=== PATIENT | male | born 1990 | race Caucasian/White ===

== ENCOUNTER 2016-12-25 13:30 | Emergency (ER) | payer MEDICAID ==
[~2016-12-25] VITALS: Ht 188 cm; Wt 97.5 kg
[2016-12-25 13:30] VITALS: BP 132/73
[2016-12-25] MEDS ORDERED: NORCOTAB PO (13:52)
[2016-12-25] MEDS ORDERED: ROBA500T PO (13:52)
[2016-12-25] MEDS ORDERED: PRED20TA PO (13:55)
[2016-12-25] MEDS ORDERED: diphenhydrAMINE 25 MG CAP PO ONE (14:00)
[2016-12-25] MEDS ORDERED: predniSONE 20 MG TAB PO ONE (14:00)
== END 2016-12-25 14:05 | disposition home or self-care (01) ==
LOC: M ED 13:53
DX: L23.7 Allergic contact dermatitis due to plants, except food (principal); F17.210 Nicotine dependence, cigarettes, uncomplicated

== ENCOUNTER → 2017-01-19 | Outpatient (CLI) | payer MEDICAID ==
[~2017-01-19] MED LIST: NORCOTAB PO; PRED20TA PO; ROBA500T PO
== END ==
LOC: M OUTALCOH 10:12
PROVIDERS: ATTEND Psychiatry & Neurology Psychiatry
DX: Z03.89 Encounter for observation for other suspected diseases and conditions ruled out (principal)

== ENCOUNTER 2017-02-09 20:33 | Emergency (ER) | payer MEDICAID, OTHER ==
[~2017-02-09] VITALS: Ht 188 cm; Wt 109.6 kg
[2017-02-09 20:34] VITALS: BP 146/78
[2017-02-09] MEDS ORDERED: NAPR500T PO (21:15)
== END 2017-02-09 21:24 | disposition home or self-care (01) ==
LOC: M ED 20:33
DX: M67.431 Ganglion, right wrist (principal); F17.200 Nicotine dependence, unspecified, uncomplicated

== ENCOUNTER → 2018-12-12 | Outpatient (CLI) | payer MEDICAID ==
[~2018-12-12] MED LIST changes: +HYDR-3715 PO; +NAPR-837 PO; -NORCOTAB PO
== END ==
LOC: M OUTALCOH 10:29
PROVIDERS: ATTEND Psychiatry & Neurology Psychiatry
DX: Z03.89 Encounter for observation for other suspected diseases and conditions ruled out (principal)

== ENCOUNTER 2018-12-21 08:56 | Outpatient (RCR) | payer MEDICAID ==
[2018-12-26] MEDS ORDERED: IBUP200C28 PO (11:17)
== END 2018-12-28 ==
LOC: M OUTALCOH 08:56
PROVIDERS: ATTEND Psychiatry & Neurology Psychiatry
DX: F11.20 Opioid dependence, uncomplicated (principal)

== ENCOUNTER 2018-12-26 10:31 | Emergency (ER) | payer MEDICAID ==
[~2018-12-26] VITALS: Ht 188 cm; Wt 125.0 kg
[2018-12-26] MEDS ORDERED: IBUP200C28 PO (11:17)
--- NOTE | 2018-12-26 12:07 | REP ---
Left ankle series: Four views. History: Injury in a fall. Findings: Four views of the left ankle demonstrate preserved ankle mortise. No fracture or subluxation is seen. Minimal anterior soft tissue swelling is seen. Impression: Mild soft tissue swelling. No fracture seen. Electronically Signed by Sharad Starkey MD 12/26/2018 11:59 A
--- NOTE | 2018-12-26 12:09 | REP ---
Left foot series: Four views. History: Injury in a fall. Findings: Four views of the left foot show overall normal mineralization. There is old fragmentation of the lateral sesamoid bone at the first MTP joint. There is no evidence of acute fracture or subluxation. Bones, joints and soft tissues are otherwise unremarkable. 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 Impression: No acute bony abnormality. No fracture seen. Electronically Signed by Sharad Starkey MD 12/26/2018 12:01 P
[2018-12-26] MEDS ORDERED: IBUPROFEN 600 MG TAB PO ONE (12:15)
[2018-12-26 12:28] VITALS: BP 134/74
== END 2018-12-26 12:33 | disposition home or self-care (01) ==
LOC: M ED 10:31
DX: S93.602A Unspecified sprain of left foot, initial encounter (principal); X58.XXXA Exposure to other specified factors, initial encounter; Y92.830 Public park as the place of occurrence of the external cause; Y93.89 Activity, other specified; Y99.9 Unspecified external cause status; Z91.030 Bee allergy status

== ENCOUNTER 2019-01-25 14:00 | Outpatient (RCR) | payer MEDICAID ==
[~2019-01-25 14:00] MED LIST changes: +IBUP200C28 PO
== END 2019-01-27 ==
LOC: M OUTALCOH 14:00
PROVIDERS: ATTEND Psychiatry & Neurology Psychiatry
DX: F11.20 Opioid dependence, uncomplicated (principal)

== ENCOUNTER 2019-02-22 13:00 | Outpatient (RCR) | payer MEDICAID | END 2019-02-27 | LOC: M OUTALCOH 13:00 | PROVIDERS: ATTEND Psychiatry & Neurology Psychiatry | DX: F11.20 Opioid dependence, uncomplicated (principal) ==

== ENCOUNTER 2019-03-20 12:46 | Outpatient (RCR) | payer MEDICAID | END 2019-03-30 | LOC: M OUTALCOH 12:46 | PROVIDERS: ATTEND Psychiatry & Neurology Psychiatry | DX: F11.20 Opioid dependence, uncomplicated (principal) ==

== ENCOUNTER → 2019-04-02 | Outpatient (CLI) | payer MEDICAID | LOC: M LAB 11:22 | PROVIDERS: ATTEND Psychiatry & Neurology Addiction Medicine | DX: F10.99 Alcohol use, unspecified with unspecified alcohol-induced disorder (principal) ==

== ENCOUNTER 2019-04-17 13:00 | Outpatient (RCR) | payer MEDICAID, OTHER | END 2019-04-29 | LOC: M OUTALCOH 13:00 | PROVIDERS: ATTEND Psychiatry & Neurology Psychiatry | DX: F11.20 Opioid dependence, uncomplicated (principal) ==

== ENCOUNTER 2019-06-21 12:46 | Outpatient (RCR) | payer OTHER | END 2019-06-29 | LOC: M OUTALCOH 12:46 | PROVIDERS: ATTEND Psychiatry & Neurology Psychiatry | DX: F11.20 Opioid dependence, uncomplicated (principal) ==

== ENCOUNTER → 2019-10-18 | Outpatient (CLI) | payer OTHER | LOC: M OUTALCOH 10:45 | PROVIDERS: ATTEND Psychiatry & Neurology Addiction Medicine | DX: Z02.2 Encounter for examination for admission to residential institution (principal) ==

== ENCOUNTER 2019-11-19 09:00 | Outpatient (RCR) | payer OTHER | END 2019-11-28 | LOC: M OUTALCOH 09:00 | PROVIDERS: ATTEND Psychiatry & Neurology Addiction Medicine | DX: F12.20 Cannabis dependence, uncomplicated (principal); F11.20 Opioid dependence, uncomplicated ==

== ENCOUNTER 2019-12-13 13:16 | Outpatient (RCR) | payer OTHER | END 2019-12-29 | LOC: M OUTALCOH 13:16 | PROVIDERS: ATTEND Psychiatry & Neurology Addiction Medicine | DX: F12.20 Cannabis dependence, uncomplicated (principal); F11.20 Opioid dependence, uncomplicated ==

== ENCOUNTER 2020-02-03 14:51 | Outpatient (RCR) | payer OTHER | END 2020-02-28 | LOC: M OUTALCOH 14:51 | PROVIDERS: ATTEND Psychiatry & Neurology Addiction Medicine | DX: F12.20 Cannabis dependence, uncomplicated (principal); F11.20 Opioid dependence, uncomplicated ==

== ENCOUNTER 2020-03-09 13:00 | Outpatient (RCR) | payer OTHER | END 2020-03-30 | LOC: M OUTALCOH 13:00 | PROVIDERS: ATTEND Psychiatry & Neurology Addiction Medicine | DX: F12.20 Cannabis dependence, uncomplicated (principal); F11.20 Opioid dependence, uncomplicated ==

== ENCOUNTER 2020-03-13 14:42 | Emergency (ER) | payer OTHER ==
[2020-03-13] MEDS ORDERED: KETOROLAC TROMETHAMINE 10 MG TAB ONE (16:09)
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
== END 2020-03-13 18:15 | disposition home or self-care (01) ==
LOC: M ED 14:42
DX: S20.212A Contusion of left front wall of thorax, initial encounter (principal); W19.XXXA Unspecified fall, initial encounter; Y92.9 Unspecified place or not applicable; Y93.51 Activity, roller skating (inline) and skateboarding; Y99.9 Unspecified external cause status; Z91.030 Bee allergy status

== ENCOUNTER 2020-04-13 13:38 | Outpatient (RCR) | payer OTHER | END 2020-04-29 | LOC: M OUTALCOH 13:38 | PROVIDERS: ATTEND Psychiatry & Neurology Addiction Medicine | DX: F12.20 Cannabis dependence, uncomplicated (principal); F11.20 Opioid dependence, uncomplicated ==

== ENCOUNTER → 2020-04-20 | Outpatient (REF) | payer OTHER ==
[~2020-04-20] MED LIST changes: +CYCL5TAB PO
[2020-04-22 09:38] LABS: CHLAMYDIA DNA AMPLIFICATION POSITIVE (NEGATIVE); GC DNA AMPLIFICATION NEGATIVE (NEGATIVE)
== END ==
LOC: M LAB REF 12:26
PROVIDERS: ATTEND Physician Assistant Medical
DX: Z11.3 Encounter for screening for infections with a predominantly sexual mode of transmission (principal)

== ENCOUNTER 2020-05-12 16:16 | Emergency (ER) | payer OTHER ==
[~2020-05-12] VITALS: Ht 188 cm; Wt 126.9 kg
[~2020-05-12 16:16] MED LIST changes: -CYCL5TAB PO
[2020-05-12] MEDS ORDERED: KETOROLAC 60MG 2ML VIAL IM ONE (17:30)
[2020-05-12] MEDS ORDERED: methocarbamoL 750 MG TAB PO ONE (17:30)
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
[2020-05-12] MEDS ORDERED: CYCL5TAB PO (18:50)
[2020-05-12 18:56] VITALS: BP 135/82
== END 2020-05-12 18:57 | disposition home or self-care (01) ==
LOC: M ED 16:16
DX: S39.012A Strain of muscle, fascia and tendon of lower back, initial encounter (principal); V86.55XA Driver of 3- or 4- wheeled all-terrain vehicle (ATV) injured in nontraffic accident, initial encounter; Y92.410 Unspecified street and highway as the place of occurrence of the external cause; Z91.030 Bee allergy status
CPT/HCPCS: 72131; 96372; 99283; J1885

== ENCOUNTER 2020-05-25 15:32 | Outpatient (RCR) | payer OTHER ==
[~2020-05-25 15:32] MED LIST changes: +CYCL5TAB PO
== END 2020-05-30 ==
LOC: M OUTALCOH 15:32
PROVIDERS: ATTEND Psychiatry & Neurology Addiction Medicine
DX: F12.20 Cannabis dependence, uncomplicated (principal); F11.20 Opioid dependence, uncomplicated

== ENCOUNTER 2020-07-06 16:00 | Outpatient (RCR) | payer OTHER | END 2020-07-30 | LOC: M OUTALCOH 16:00 | PROVIDERS: ATTEND Psychiatry & Neurology Addiction Medicine | DX: F12.20 Cannabis dependence, uncomplicated (principal); F11.20 Opioid dependence, uncomplicated ==

== ENCOUNTER 2020-08-10 15:10 | Outpatient (RCR) | payer OTHER | END 2020-08-30 | LOC: M OUTALCOH 15:10 | PROVIDERS: ATTEND Psychiatry & Neurology Addiction Medicine | DX: F12.20 Cannabis dependence, uncomplicated (principal); F11.20 Opioid dependence, uncomplicated ==

== ENCOUNTER 2020-08-31 14:29 | Outpatient (RCR) | payer OTHER ==
[2020-09-13] MEDS ORDERED: DOXY100C37 PO (16:41)
== END 2020-09-27 ==
LOC: M OUTALCOH 14:29
PROVIDERS: ATTEND Psychiatry & Neurology Psychiatry
DX: F12.20 Cannabis dependence, uncomplicated (principal); F11.21 Opioid dependence, in remission

== ENCOUNTER 2020-09-13 14:55 | Emergency (ER) | payer OTHER ==
[~2020-09-13] VITALS: Ht 188 cm; Wt 121.8 kg
--- OUTSIDE RECORDS SUMMARY | 2020-09-13 15:02 | CCD ---
Author Author [facility] Organization [facility] Address Unknown Phone Unavailable Care Team Providers Care Supervisor Gate Services Name Role Phone Rosie Jorgensen Unavailable ANCELMO, SHEILA Unavailable Unavailable Maring, Deandre PA Unavailable Unavailable Maring, Deandre PA Unavailable Unavailable Maring, Deandre PA Unavailable Unavailable Maring, Deandre PA Unavailable Unavailable Maring, Deandre PA Unavailable Unavailable Maring, Deandre PA Unavailable Unavailable Maring, Deandre PA Unavailable Unavailable Maring, Deandre PA Unavailable Unavailable Maring, Deandre PA Unavailable Unavailable Maring, Deandre PA Unavailable Unavailable Maring, Deandre PA Unavailable Unavailable Maring, Deandre PA Unavailable Unavailable Maring, Deandre PA Unavailable Unavailable Maring, Deandre PA Unavailable Unavailable Re-disclosure Warning The records that you are about to access may contain information from federally-assisted alcohol or drug abuse programs. If such information is present, then the following federally mandated warning applies: This information has been disclosed to you from records protected by federal confidentiality rules (42 CFR part 2). The federal rules prohibit you from making any further disclosure of this information unless further disclosure is expressly permitted by the written consent of the person to whom it pertains or as otherwise permitted by 42 CFR part 2. A general authorization for the release of medical or other information is NOT sufficient for this purpose. The Federal rules restrict any use of the information to criminally investigate or prosecute any alcohol or drug abuse patient.The records that you are about to access may contain highly sensitive health information, the redisclosure of which is protected by Article 27-F of the [facility] Public Health law. If you continue you may have access to information: Regarding HIV / AIDS; Provided by facilities licensed or operated by the [facility] Office of Mental Health; or Provided by the [facility] Office for People With Developmental Disabilities. If such information is present, then the following [facility] mandated warning applies: This information has been disclosed to you from confidential records which are protected by state law. State law prohibits you from making any further disclosure of this information without the specific written consent of the person to whom it pertains, or as otherwise permitted by law. Any unauthorized further disclosure in violation of state law may result in a fine or group home sentence or both. A general authorization for the release of medical or other information is NOT sufficient authorization for further disc losure. Family History Family Member Name Family Member Gender Family Member Status Date o f Status Description Data Source(s) Unknown Male Problem [facility] ([facility]) Unknown Male Problem [facility] ([facility] ) Encounters Encounter Providers Location Date Indications Data Source(s ) O Attender: Deandre WERNER 09/12/19 08:52:59 AM EST - 09/12/2020 09:49:39 AM EST [facility] ([facility] ) Outpatient Attender: [facility] 01/07/2020 07:52:21 PM EDT [facility] Outpatient Attender: SHEILA [facility] 12/28/2019 12:16:21 AM EDT [facility] Attender: Rosie Jorgensen 10/11/2019 12:00:00 AM E DT [facility] ([facility]) Brief Individual Psychotherapy - 30 min Attender: Rosie No [facility] 10/10/2019 01:45:00 AM EDT - 10/10/2019 01:45:00 AM EDT [facility] ([facility]) Extended Individual Psychotherapy - 45 min Attender: Graham Hawthorne [facility] 10/08/2019 09:30:00 AM EDT - 10/08/2019 09:30:00 AM EDT [facility] ([facility]) Attender: Rosie Jorgensen 10/08/2019 12:00:00 AM E DT [facility] ([facility]) Medications Medication Brand Name Start Date Product Form Dose Route Admi nistrative Instructions Pharmacy Instructions Status Indications Reaction Description Data Source(s) Cyclobenzaprine hydrochloride 10 MG Oral Tablet CYCLOBENZAPR INE HCL 06/09/2020 12:00:00 AM EST tablet 21 TAKE 1 TABLET (O RAL) 3 TIMES PER DAY NEEDED FOR 7 DAYS TAKE 1 TABLET (ORAL) 3 TIMES PER DAY NEEDED FOR 7 DAYS SO LD: 06/09/2020 [facility] 20 mg 06/09/2020 12:00:00 AM EST tablet 10 TAKE TWO TABLETS BY MOUTH EVERY DAY FOR 5 DAYS TAKE TWO TABLETS BY MOUTH EVERY DAY FOR 5 DAYS SOLD: 020 [facility] Cyclobenzaprine hydrochloride 5 MG Oral Tablet CYCLOBENZAPRI NE HCL 05/13/2020 12:00:00 AM EDT tablet 10 TAKE ONE TABLET BY MOUTH THREE TIMES A DAY NEEDED FOR MUSCLE SPASMS TAKE ONE TABLET BY MOUTH THREE TIMES A D AY NEEDED FOR MUSCLE SPASMS SOLD: 05/13/2020 [facility] 500 mg 04/23/2020 12:00:00 AM EDT tablet 2 TAKE TWO TABLETS BY MOUTH EVERY DAY FOR 1 DOSE TAKE TWO TABLETS BY MOUTH EVERY DAY FOR 1 DOSE SOLD: 020 [facility] 25 mg 07/16/2019 12:00:00 AM EST capsule,extended releas e 24hr 30 TAKE ONE CAPSULE BY MOUTH EVERY MORNING, MAXIMUM DAILY DOSE = 1 CAPSULE TAKE ONE CAPSULE BY MOUTH EVERY MORNING, MAXIMUM DAILY DOSE = 1 CAPSULE SOLD: 07/18/2019 [facility] 20 mg 07/16/2019 12:00:00 AM EST tablet 30 TAKE ONE TABLET BY MOUTH EVERY DAY TAKE ONE TABLET BY MOUTH EVERY DAY SOLD: 07/18/2019 [facility] Insurance Providers Payer name Policy type / Coverage type Policy ID Covered green party ID Covered green party's relationship to sinha Policy Sinha Plan Information [facility] [id number] [address] [employer] [id number] Self [id number] [employer] [id number] Self [id number] [place] [id number] S [id number] Managed Care - MVP P UNAVAILABLE S UNAVAILABLE Medicaid S UNAVAILABLE S U[place]ILA BLE [place] [place] [id number] 18 [id number] [place] [id number] 18 74 [id number] MEDICAID [id number] SP [id number] Medicaid [facility] Medicaid [id number] Self B [id number] MEDICAID [facility] [id number] 18 B [id number] [facility] [id number] SP [id number] VALUE OPTIONS (MVP) [id number] SP [id number] [employer] [id number] SP [id number] SELF PAY UNAVAILABLE SP U[place] BLE [place] Medig[place] Part B [id number] Self [id number] MVP Medicaid Commercial [id number] Self [id number] [employer] [id number] SP [id number] [employer] [id number] SP [id number] DEPARTMENT OF CORRECTIONS [id number] S [id number] Problems, Conditions, and Diagnoses Code Display Name Description Problem Type Effective Dates Data Source(s) F43.23 Adjustment disorder with mixed anxiety a nd depressed mood Adjustment Disorder, With mixed anxiety and depressed mood Condition 2019 12:00:00 AM EDT [facility] ([facility]) Surgeries/Procedures Procedure Description Date Indications Data Source(s) Brief Individual Psychotherapy - 30 min 10/11/2019 12:00:00 AM EDT - 10/11/2019 12:00:00 AM EDT [facility] ([facility]) Brief Individual Psychotherapy - 30 min 10/10/2019 12: 00:00 AM EDT [facility] ([facility]) Extended Individual Psychotherapy - 45 min 10/08/2019 12:00:00 AM EDT - 10/08/2019 12:00:00 AM EDT [facility] ([facility]) Extended Individual Psychotherapy - 45 min 0 12:00:00 AM EDT [facility] ([facility]) Social History Code Duration Value Status Description Data Source(s ) Smoking 10/11/2019 12:00:00 AM EDT Unknown if ever smoked comp leted Unknown if ever smoked [facility] ([facility]) Smoking 10/08/2019 12:00:00 AM EDT Unknown if ever smoked comp leted Unknown if ever smoked [facility] ([facility])
--- OUTSIDE RECORDS SUMMARY | 2020-09-13 15:27 | CCD ---
Author Author [facility] Organization [facility] Address Unknown Phone Unavailable Care Team Providers Care Outpatient Physical Therapist Name Role Phone Rosie Jorgensen Unavailable ANCELMOFH, AFAMOL Unavailable Unavailable Maring, Deandre PA Unavailable Unavailable [...] is protected by Article 27-F of the [facility] Public Health law. If you continue you may have access to information: Regarding HIV / AIDS; Provided by facilities licensed or operated by the [facility] Office of Mental Health; or Provided by the [facility] Office for People With Developmental Disabilities. If such information is present, then the following [facility] mandated warning applies: This information has been [...] law may result in a fine or mcc sentence or both. A general authorization for the release of medical or other information is NOT sufficient authorization for further disc losure. Family History Family Member Name Family Member Gender Family Member Status Date o f Status Description Data Source(s) Unknown Male Problem [facility] ([facility]) Unknown Male Problem MED[facility] ([facility]) Encounters Encounter Providers Location Date Indications Data Source(s ) O Attender: Deandre WERNER 09/12/19 08:52:59 AM EST - 09/12/2020 09:49:39 AM EST [facility] ([facility] ) [facility]: [facility] 01/07/2020 07:52:21 PM EDT [facility] 12/28/2019 12:16:21 AM EDT [facility] Attender: Rosie Jorgensen 10/11/2019 12:00:00 AM E DT [facility] ([facility]) Brief Individual Psychotherapy - 30 min Attender: Rosie No [facility] 10/10/2019 01:45:00 AM EDT - 10/10/2019 01:45:00 AM EDT [facility] ([facility]) Extended Individual Psychotherapy - 45 min Attender: Graham jeff Jorgensen [facility] 10/08/2019 09:30:00 AM EDT - 10/08/2019 09:30:00 AM EDT [facility] ([facility]) Attender: Rosie Jameel 10/08/2019 12:00:00 AM E DT [facility] ([facility]) Medications Medication Brand Name Start Date Product [...] AY NEEDED FOR MUSCLE SPASMS SOLD: 05/13/2020 [facility] 500 mg 04/23/2020 12:00:00 AM [...] type / Coverage type Policy ID Covered democrat ID Covered democrat's relationship to sinha Policy Sinha Plan Information [facility] [id number] SP [id number] [id number] Self [id number] [employer] [id number] Self [id number] [place] [id number] S [id number] Managed Care - MVP P UNAVAILABLE S UNAVAILABLE Medicaid S UNAVAILABLE S [place] [id number] 18 74 [id number] [place] [id number] 18 74 [id number] MEDICAID [id number] SP [id number] Medicaid [facility] Medicaid [id number] Self B [id number] MEDICAID [facility] [id number] 18 B [id number] [facility] [id number] SP [id number] VALUE OPTIONS (MVP) [id number] SP [id number] [employer] [id number] SP [id number] SELF PAY UNAVAILABLE SP UNA[place]IL[place] BLE [place] Medig[place] Part B [id number] Self [id number] MVP Medicaid Commercial [id number] Self [id number] [employer] [id number] SP [id number] [employer] [id number] SP [id number] DEPARTMENT OF CORRECTIONS [id number] S [id number] Problems, Conditions, and Diagnoses Code Display Name Description Problem Type Effective Dates Data Source(s) F43.23 Adjustment disorder with mixed anxiety a nd depressed mood Adjustment Disorder, With mixed anxiety and depressed mood Condition 2019 12:00:00 AM EDT [facility] ([facility]) Surgeries/Procedures Procedure Description Date Indications Data Source(s) Brief Individual Psychotherapy - 30 min 10/11/2019 12:00:00 AM EDT - 10/11/2019 12:00:00 AM EDT [facility] ([facility]) Brief Individual Psychotherapy - 30 min 10/10/2019 12: 00:00 AM EDT [facility] ([facility]) Extended Individual Psychotherapy - 45 min 10/08/2019 12:00:00 AM EDT - 10/08/2019 12:00:00 AM EDT [facility] ([facility]) Extended Individual Psychotherapy - 45 min 0 12:00:00 AM EDT [facility] ([facility]) Social History Code Duration Value Status Description Data Source(s ) Smoking 10/11/2019 12:00:00 AM EDT Unknown if ever smoked comp leted Unknown if ever smoked [facility] ([facility]) Smoking 10/08/2019 12:00:00 AM EDT Unknown if ever smoked comp leted Unknown if ever smoked [facility] ([facility])
[2020-09-13] MEDS ORDERED: DOXY100C37 PO (16:41)
[2020-09-13] MEDS ORDERED: LIDOCAINE 1% SDV 5ML VIAL DILUENT ONE (16:45)
[2020-09-13] MEDS ORDERED: cefTRIAXone 500MG VIAL (J0696 PER 250MG) IM ONE (16:45)
[2020-09-13 17:01] LABS: CHLAMYDIA DNA AMPLIFICATION POSITIVE (NEGATIVE); GC DNA AMPLIFICATION NEGATIVE (NEGATIVE)
[2020-09-13 17:05] VITALS: BP 140/79
== END 2020-09-13 17:12 | disposition home or self-care (01) ==
LOC: M ED 14:55
DX: Z20.2 Contact with and (suspected) exposure to infections with a predominantly sexual mode of transmission (principal); Z86.19 Personal history of other infectious and parasitic diseases; F17.200 Nicotine dependence, unspecified, uncomplicated; F12.10 Cannabis abuse, uncomplicated
CPT/HCPCS: 81001; 87086; 87661; 96372; 99284; J0696

== ENCOUNTER 2020-10-05 13:00 | Outpatient (RCR) | payer OTHER ==
[~2020-10-05 13:00] MED LIST changes: +DOXY100C37 PO
== END 2020-10-28 ==
LOC: M OUTALCOH 13:00
PROVIDERS: ATTEND Psychiatry & Neurology Psychiatry
DX: F12.20 Cannabis dependence, uncomplicated (principal); F11.21 Opioid dependence, in remission

== ENCOUNTER 2020-11-16 08:51 | Emergency (ER) | payer OTHER ==
[~2020-11-16] VITALS: Ht 188 cm; Wt 110.3 kg
[2020-11-16 08:52] VITALS: BP 129/68
[2020-11-16 12:06] LABS: CHLAMYDIA DNA AMPLIFICATION POSITIVE (NEGATIVE); GC DNA AMPLIFICATION NEGATIVE (NEGATIVE)
== END 2020-11-16 10:52 | disposition home or self-care (01) ==
LOC: M ED 08:51
DX: H01.006 Unspecified blepharitis left eye, unspecified eyelid (principal); Z11.3 Encounter for screening for infections with a predominantly sexual mode of transmission

== ENCOUNTER → 2021-04-01 | Outpatient (REF) | payer OTHER ==
[~2021-04-01] MED LIST changes: -DOXY100C37 PO; +DOXY1CAP62 PO
[2021-04-01 18:05] LABS: GC DNA AMPLIFICATION NEGATIVE (NEGATIVE)
== END ==
LOC: M LAB REF 16:24
PROVIDERS: ATTEND Surgery
DX: A64 Unspecified sexually transmitted disease (principal)

== ENCOUNTER → 2023-08-02 | Outpatient (REF) | payer OTHER ==
[~2023-08-02] MED LIST changes: +DOXY-443 PO; -DOXY1CAP62 PO
== END ==
LOC: M LAB REF 16:17
PROVIDERS: ATTEND Physician Assistant
DX: R05.9 Cough, unspecified (principal)